=== PATIENT | female | born 1985 | race Two or more races ===

== ENCOUNTER 2022-12-22 10:44 | Inpatient (IN) ==
[2022-12-22] MEDS ORDERED: LIDOCAINE 1% LOCAL 20 ML VIAL INFIL PRN (11:00)
[2022-12-22] MEDS ORDERED: OXYTOCIN 30 UNITS/500ML NSS IV ONE (11:00)
[2022-12-22] MEDS ORDERED: OXYTOCIN 30 UNITS/500 ML BAG IV PRN ×2 (11:00→12:11)
[2022-12-22] MEDS ORDERED: LACTATED RINGER'S 1,000 ML IV PRN (11:00)
[2022-12-22] MEDS ORDERED: PENICILLIN G POTASSIUM 6 MU in DEXTROSE 5% 250 ML IV STA (11:03)
--- NOTE | 2022-12-22 11:06 | History & Physical Report ---
Date of Service December 22, 2022 Assessment & Plan (1) Elderly multigravida: Plan: Admit to L&D. Labs, EFM/toco. IV. Penicillin for GBS+ Discussed with patient that will order labs STAT and attempt for epidural, but we may run out of time - as I think delivery is likely imminent. History of Present Illness Chief Complaint: labor Primary Care Provider: NO PCP 37yo @ 36 10/05, spontaneous labor. Was seen in office today, found to be 5cm dilated and directed to L&D. Upon my exam, she is very uncomfortable and asking for epidural. and Delivery Plans AMA Weekly NST's 36 weeks GDM *Begin monthly Growth US's @24wks Transfer into care @ 30+ weeks ? IUGR with previous pregnancies G1 5#10 @ 39w, GDMA1 G2 4#10 @ 37w, GDMA1 G3 4#2 @37w, insulin GDM GBS + urine culture - Treat in labor Issues with previous Epidurals *Anesthesia consult (12/05/22 2 11:15am) Allergies Allergy/AdvReac Type Severity Reaction Status Date / Time lactose Allergy Intermediate diarrhea Verified 12/22/22 10:00 Home Medications Medication Instructions Recorded Confirmed Type acetaminophen [Tylenol] PO PRN 11/05/22 12/22/22 History magnesium PO PRN 11/05/22 12/22/22 History prenat.vits,jayne,qfi-[id number] 1 tab PO DAILY 11/05/22 12/22/22 History Patient History Medical History (Updated 12/05/22 @ 11:59 by Patricia Mera PA-C) Borderline blood pressure pt notes chronically low BP Gestational diabetes diet controlled with current History of chicken pox Mastitis Miscarriage MRSA (methicillin resistant staph aureus) culture positive Surgical History S/P cervical polypectomy S/P lumpectomy of breast MRSA+ S/P wisdom tooth extraction Family History Aunt Breast cancer Mother Diabetes Hypothyroid Father Diabetes Myocardial infarction Sister Radha's thyroiditis Denies family history of Ovarian cancer Colorectal cancer Social History (Updated 12/22/22 @ 11:01 by Anette Bland, RN) Smoking Status: Never smoker Do You Dip or Chew Tobacco: No; Hx Alcohol Use: No Hx Substance Use: No Preferred Language: Barbadian Communication Ability: Effective Hearing Ability: Normal Beliefs That Will Affect Care: None marital status: marital status details: Shine Turcios (37) [phone] Current Living Situation: Spouse and Family Current Living Situation Comment: lives with spouse, 3 children current occupational status: unemployed current occupation: homemaker Feels Safe at Home: Yes Childhood Exposure to Second-Hand Smoke: No Diet: regular Review of Systems All systems reviewed & are unremarkable except as noted in HPI & below Physical Exam Physical Exam: FHT 150s, difficult to trace d't maternal discomfort [place] difficult to trace, involuntary pushing SVE anterior lip, bulging membranes, +1 station Constitutional: WD/WN, vitals as above Respiratory: normal respiratory effort, lungs clear to auscultation no respiratory distress Cardiovascular: Rate/Rhythm: regular rate and regular rhythm Gastrointestinal (Abdomen): Inspection/Auscultation: abdomen normal to inspection Percussion/Palpation: abdomen soft; abdomen nontender Gravid. No s/s chorio or abruption. Skin: no rashes, warm and dry Psychiatric: A+Ox3, euthymic affect Results & Data Vital Signs (Past 12 Hours) Vital Signs Pulse BP 12/22/22 10:49 75 125/74 Coding Level of Care Code None Diagnoses Elderly multigravida O09.529
[2022-12-22 11:28] LABS: Hematocrit (blood only) 35.3 % (37.0-47.0); Hemoglobin 11.4 g/dl (12.0-16.0); Mean Corpuscular Hemoglobin 25.1 pg (25.0-34.0); Mean Corpuscular Hgb Conc 32.3 g/dL (32.0-36.0); Mean Corpuscular Volume 77.8 fL (80.0-100.0); Mean Platelet Volume 10.9 fL (9.4-12.4); Platelet Count 232 K/uL (130-400); RDW Coefficient of Variation 15.9 % (11.5-14.5); RDW Standard Deviation 43.9 fL (36.4-46.3); Red Blood Count 4.54 M/uL (4.20-5.40); White Blood Count 12.72 K/ul (4.8-10.8)
[2022-12-22] MEDS ORDERED: KETOROLAC 30 MG/ML VIAL ONE (11:36)
[2022-12-22] MEDS ORDERED: KETOROLAC 30 MG/ML VIAL IV ONE ×2 (11:45→12:11)
--- NOTE | 2022-12-22 12:01 | Delivery Summary ---
Vaginal Delivery Summary Date of Service December 22, 2022 Vaginal Delivery Summary and 1st Degree LAC Vaginal Delivery Summary: Pre-delivery diagnoses: 37yo @ 36 5/7, spontaneous labor, AMA, gestational diabetes, late transfer of care, GBS+ Post-delivery diagnoses: same Procedure: spontaneous vaginal delivery, repair of 1st degree laceration Surgeon: Farzaneh Swann DO Complications: none Findings: Viable male . Apgars: 8/9. Weight pending, please see nursery records Estimated blood loss: 300ml Description of delivery: The patient progressed to complete without anesthesia. Bulging membranes and very uncomfortable - offered AROM, she accepted. AROM performed clear fluid, she then began to push. She spontaneously vaginally delivered a viable from the cephalic presentation. The head delivered in ESTER position. The anterior shoulder delivered, followed by the posterior shoulder, followed by the body. No nuchal. The baby was placed on mother's abdomen and a spontaneous cry was heard. Delayed cord clamping was employed, and the cord was doubly clamped and cut. A segment was retained for cord gases. Cord blood was obtained. The placenta was delivered spontaneously intact with a 3-vessel cord. The uterus and vagina were swept of clots and debris. IV pitocin was given. The uterus became firm. The cervix, vagina, and perineum were inspected a 1st degree laceration was noted. This was injected with 1% lidocaine for local anesthetic and patient was given 30mg IV toradol and the laceration was repaired in standard fashion with 3-0 Vicryl. Excellent hemostasis was observed. The mother and baby are recovering in stable and good condition in the room. Sponge, needle and instrument counts were correct x 2. Farzaneh Swann DO [facility] Vaginal Delivery Charge Vaginal Delivery Codes: 64447 global code for the antepartum, delivery, and post- Delivery Type Details: and 1st Degree LAC
[2022-12-22] MEDS ORDERED: DIPHTHERIA/TETANUS/PERTUSSIS Vaccine (Tdap, Age 7+yrs) 0.5mL SYR/VL IM ONE (12:11)
[2022-12-22] MEDS ORDERED: BENZOCAINE 20% AER SPR 82.5 GM CAN EXT PRN (12:11)
[2022-12-22] MEDS ORDERED: ACETAMINOPHEN 325 MG TAB PO PRN (12:11)
[2022-12-22] MEDS ORDERED: HYDROCORTISONE ACETATE 25 MG SUPP PR PRN (12:11)
[2022-12-22] MEDS ORDERED: bisacodyL 10 MG SUPP PR PRN (12:11)
[2022-12-22 12:37] LABS: Base Excess Cord Arterial Bld -6.7 mEq/L (-9-1.8); CO2 Cord Arterial Blood 55 mmHg (39.1-73.5); HCO3 Cord Arterial Blood 22 mmol/L (19.7-28.5); Oxygen Sat Cord Arterial Blood 61.6 % (<60); PO2 Cord Arterial Blood 33 mmHg (4.1-31.7); pH Cord Arterial Blood 7.21 (7.1-7.38)
[2022-12-22 12:38] LABS: Base Excess Cord Venous Blood -3.8 mEq/L (-7.7-1.9); Cord Venous Blood HCO3 22 mmol/L (18.4-26.8); Cord Venous Blood PCO2 42 mmHg (30.4-57.2); Cord Venous Blood PO2 23 mmHg (14.1-43.3); Cord Venous Blood pH 7.33 (7.20-7.44); O2 Saturation Cord Venous Bld < 60.0 % (<68)
[2022-12-22] MEDS ORDERED: PENICILLIN G POTASSIUM 3 MU in DEXTROSE 5% 100 ML IV PRN (14:00)
[2022-12-22] MEDS: oxyCODONE/ACETAMINOPHEN 5mg/325mg TAB PO PRN ×2 (14:05→23:17)
[2022-12-22] MEDS: IBUPROFEN 600 MG TAB PO PRN (18:25)
[2022-12-22] MEDS: DOCUSATE SODIUM 100 MG CAP PO SCH (20:02)
--- NOTE | 2022-12-23 05:00 | Obstetrical Progress Note ---
Date of Service <Leelee Burnette MD - Last Filed: 12/23/22 07:26> December 23, 2022 Assessment & Plan <Leelee Burnette MD - Last Filed: 12/23/22 07:26> (1) Spontaneous vaginal delivery: Patient with the above mentioned history and findings was evaluated at bedside and found awake, alert, oriented in all spheres, afebrile, and in no acute distress. Vital signs showed no fever and blood pressures remained stable with ranges between 101-138 systolic BP and 64-88 diastolic BP without symptoms of severity (e.g. vision changes, headaches, oliguria, etc.). Her pain intensity is rated as a 2 in a 10-point scale, and is adequately controlled with analgesia. Her blood type is A positive and today's hemoglobin is adequate at 11.4 g/dL. Serologies are positive for GBS which was treated during labor. Patient is Rubella immune. Overall, patient is doing well clinically. Therefore, will encourage ambulation as tolerated and will resume regular diet. Will continue monitoring pain levels and management with current regimen. Patient is encouraged to breastfeed and to notify changes in normal lochia such as excessive bleeding (using more than 1 pad per hour), foul smell, or purulent appearance. Patient was counselled on discharge instructions. She is to make an appointment with her OB for 6 weeks after discharge for follow up evaluation. All questions were answered. <Rita Lake MD - Last Filed: 12/23/22 08:00> (1) Spontaneous vaginal delivery: Subjective <Leelee Burnette MD - Last Filed: 12/23/22 07:26> Douglas is a 37 y/o female who is now PPD # 1 following at 36 5/7 weeks. Reports feeling well overall this morning. Refers mild to moderate abdominal cramping & 2/10 pain well managed on analgesics. Voiding well and without difficulty. She has passed gas and has had a bowel movement. Tolerating meals overnight and able to ambulate some. Some persistent lochia with some improvement this morning. Currently breast feeding. Constitutional: no fever, no chills or no sweats Denies changes in vision. Denies shortness of breath or difficulty breathing Cardiovascular: no chest pain or no palpitations Breast: no breast pain Genitourinary (female): no dysuria Neurologic: no headache(s) Physical Exam <Leelee Burnette MD - Last Filed: 12/23/22 07:26> General: Alert. Oriented to person, time, and place. Afebrile. No acute distress. Eyes: pupils equal and reactive to light bilaterally, extraocular movements intact. Cardiac: Regular rate and rhythm, no murmurs/rubs/gallops. Respiratory: Clear to auscultation bilaterally a/p, no wheezes/rales/rhonchi. No increased work of breathing. Symmetrical chest rise. No respiratory distress. Abdomen: Soft, nontender, nondistended. Bowel sounds present. Uterus: Uterine fundus firm, non-tender, and palpable slightly above umbilicus possibly due to patient not having urinating yet. Lower Extremities: No lower extremity edema or swelling. No deep calf pain. Anthony's negative bilaterally. Psych: Euthymic affect. Mood and affect congruence. Regular speech rate and content. Results & Data <Leelee Burnette MD - Last Filed: 12/23/22 07:26> Vital Signs (Past 12 Hours) Vital Signs Temp Pulse Resp BP Pulse Ox O2 Del Method 12/22/22 23:55 36.6 C 71 18 106/68 96 Room Air 12/22/22 19:23 36.7 C 99 H 18 109/70 97 Room Air <Rita Lake MD - Last Filed: 12/23/22 08:00> Co-Signing Physician Notes Resident Physician Supervision Note: I interviewed and examined the patient. Discussed with Dr. Burnette and agree with findings and plan as documented in the note. Any exceptions or clarifications are listed here: PP1 s/p , doing well. VSS, exam benign and wnl. Desires d/c home if peds ok, ok to do so Documented By: Rita Lake MD Resident Activity Tracking <Leelee Burnette MD - Last Filed: 12/23/22 07:26> Resident Involvement: Resident Care Provided Care Provided: OB Delivery
[2022-12-23 07:27] LABS: Hematocrit (blood only) 31.9 % (37.0-47.0); Hemoglobin 10.2 g/dl (12.0-16.0)
[2022-12-23] MEDS: PRENATAL VITAMIN 1 TAB PO SCH (08:01)
[2022-12-23] MEDS: DOCUSATE SODIUM 100 MG CAP PO SCH ×2 (08:01→19:12)
[2022-12-23] MEDS: IBUPROFEN 600 MG TAB PO PRN ×2 (11:00→19:11)
[2022-12-23] MEDS ORDERED: bisacodyL 5 MG TABEC PO SCH (20:00)
--- NOTE | 2022-12-24 06:43 | Obstetrical Progress Note ---
Date of Service <Leelee Burnette MD - Last Filed: 12/24/22 07:47> December 24, 2022 Assessment & Plan <Leelee Burnette MD - Last Filed: 12/24/22 07:47> (1) Spontaneous vaginal delivery: Patient with the above mentioned history and findings was evaluated at bedside and found clinically and hemodynamically stable, afebrile, awake, alert, oriented x3, and in no acute distress. Her vital signs show no fevers and blood pressure has remained stable. She denies chills, chest pain, SOB, headaches, vision changes, RUQ pain, or any other symptom. Her lochia and pain have improved since her previous evaluation, is without issues, and is progressing well. She is A positive blood type and her hemoglobin is 10.2. Overall she seems stable and is fit to go home today. Pediatrics also gave the ok for baby to be discharged. Discharge instructions were discussed. Her pain will be managed with Tylenol, Ibuprofen, or Motrin PRN. She is to call to schedule and appointment with her OB for 6 weeks after discharge for her follow up evaluation. All questions were answered. <Lizzette Thomason MD, FACOG - Last Filed: 12/24/22 07:52> (1) Spontaneous vaginal delivery: Subjective <Leelee Burnette MD - Last Filed: 12/24/22 07:47> Douglas is a 37 y/o female who is now PPD # 2 following at 36 5/7 weeks. Reports feeling well overall this morning. Refers mild abdominal cramping & 0/10 pain well managed on analgesics. Voiding well and without difficulty. She has passed gas and has had a bowel movement. Tolerating meals overnight and able to ambulate some. Some persistent lochia with some improvement this morning. Currently breast feeding. Constitutional: no fever, no chills or no sweats Denies changes in vision. Denies shortness of breath or difficulty breathing Cardiovascular: no chest pain or no palpitations Breast: no breast pain Genitourinary (female): no dysuria Neurologic: no headache(s) Physical Exam <Leelee Burnette MD - Last Filed: 12/24/22 07:47> General: Alert. Oriented to person, time, and place. Afebrile. No acute distress. Eyes: pupils equal and reactive to light bilaterally, extraocular movements intact. Cardiac: Regular rate and rhythm, no murmurs/rubs/gallops. Respiratory: Clear to auscultation bilaterally a/p, no wheezes/rales/rhonchi. No increased work of breathing. Symmetrical chest rise. No respiratory distress. Abdomen: Soft, nontender, nondistended. Bowel sounds present. Uterus: Uterine fundus firm, non-tender, and palpable at umbilicus. Lower Extremities: No lower extremity edema or swelling. No deep calf pain. Anthony's negative bilaterally. Psych: Euthymic affect. Mood and affect congruence. Regular speech rate and content. Results & Data <Leelee Burnette MD - Last Filed: 12/24/22 07:47> Vital Signs (Past 12 Hours) Vital Signs Temp Pulse Resp BP Pulse Ox O2 Del Method 12/23/22 23:00 36.8 C 96 H 16 139/84 97 Room Air 12/23/22 19:15 36.7 C 93 H 16 131/83 98 Room Air <Lizzette Thomason MD, FACOG - Last Filed: 12/24/22 07:52> Co-Signing Physician Notes Resident Physician Supervision Note: I was present with Dr. Burnette during the history and exam. I discussed the case with the resident and agree with the findings and plan as documented in the note. Any exceptions or clarifications are listed here: stable doing well. eating, voiding, ambulating, . rh pos, ri. abd soft ff 2 down nt, nt calves. will dc home, instructions reviewed. f/u 6wk pp check. Documented By: Lizzette Thomason MD, FACOG Resident Activity Tracking <Leelee Burnette MD - Last Filed: 12/24/22 07:47> Resident Involvement: Resident Care Provided Care Provided: OB Delivery
[2022-12-24] MEDS: PRENATAL VITAMIN 1 TAB PO SCH (07:36)
[2022-12-24] MEDS: DOCUSATE SODIUM 100 MG CAP PO SCH (07:36)
== END 2022-12-24 12:08 | disposition home or self-care (01) | DRG 807 ==
LOC: OPB 10:44 → 4S1 10:45 → 4E2 15:16